=== PATIENT | male | born 1985 | race African-American/Black ===

== ENCOUNTER 2017-05-01 02:05 | Emergency (ER) | payer SELFPAY ==
[2017-05-01 02:17] VITALS: BP 145/97; PULSE 97; TEMP 97.4; BMI 32.5
--- NOTE | 2017-05-01 02:24 | PDOC ---
History of Present Illness - General Exam Limitations: No Limitations - History of Present Illness Initial Comments: 05/01/17 02:26 The patient is a 31 year old male, with no significant past medical history, who presents to the emergency department via EMS, s/p slip and fall. The patient reports he slipped, fell down stairs and hit his head. The patient reports loss of consciousness and states the fall was witnessed by a family member. He denies any dizziness, chest pain, palpitations, shortness of breath or nausea before falling. The patient reports a history of pulmonary embolism and states he is currently on Coumadin. The patient reports his last Tetanus shot was 2 weeks ago. He denies any recent fevers, chills, headache or dizziness. He denies any recent nausea, vomit, diarrhea or constipation. He denies any recent chest pain or shortness of breath. He denies any numbness, tingling or loss of sensation. Allergies: NKA <Pipo Torres - Last Filed: 05/01/17 03:57> - General History Source: Patient <Ralph Chang - Last Filed: 05/01/17 19:22> - General Chief Complaint: Injury Stated Complaint: FALL Time Seen by Provider: 05/01/17 02:17 Past History <Pipo Torres - Last Filed: 05/01/17 03:57> - Suicide/Smoking/Psychosocial Hx Smoking History: Never smoked Have you smoked in the past 12 months: No Number of Cigarettes Smoked Daily: 20 Information on smoking cessation initiated: No Hx Alcohol Use: No Drug/Substance Use Hx: No <Ralph Chang - Last Filed: 05/01/17 19:22> - Past Medical History Allergies/Adverse Reactions: Allergies Allergy/AdvReac Type Severity Reaction Status Date / Time No Known Allergies Allergy Verified 05/01/17 06:34 Home Medications: Ambulatory Orders Doxycycline Hyclate 100 mg PO BID #20 capsule 11/14/14 Oxycodone HCl/Acetaminophen [Percocet 5/325 -] 1 tab PO Q6H #12 tablet 11/14/14 Review of Systems - Review of Systems Comments:: 05/01/17 02:27 CONSTITUTIONAL: Absent: fever, no chills, no fatigue EYES: Absent: visual changes ENT: Absent: ear pain, no sore throat CARDIOVASCULAR: Absent: chest pain, no palpitations RESPIRATORY: Absent: cough, no SOB GI: Absent: abdominal pain, no nausea, no vomiting, no constipation, no diarrhea GENITOURINARY: Absent: dysuria, no frequency, no hematuria MUSKULOSKELETAL: Absent: back pain, no arthralgia, no myalgia SKIN: Absent: rash NEURO: Present: (+) LOC Absent: headache <Pipo Torres - Last Filed: 05/01/17 03:57> *Physical Exam - Vital Signs Last Vital Signs Temp Pulse Resp BP Pulse Ox 97.4 F L 97 H 20 145/97 97 05/01/17 02:14 05/01/17 02:14 05/01/17 02:14 05/01/17 02:14 05/01/17 02:14 - Physical Exam Comments: 05/01/17 02:28 GENERAL: Well-appearing, well-nourished. No apparent distress. HEENT: (+) Hematoma posterior of the head. (+) Laceration to the lower lip, left side. PERRL, EOM intact. CARDIOVASCULAR: Normal S1, S2. Regular rate and rhythm. PULMONARY: Clear to auscultation bilaterally. ABDOMEN: Soft, non-distended, non-tender. EXTREMITIES: Normal ROM in all four extremities. No gross deformities. SKIN: Warm, dry. No rash NEUROLOGICAL: No focal neurological deficits. <Pipo Torres - Last Filed: 05/01/17 03:57> - Vital Signs Last Vital Signs Temp Pulse Resp BP Pulse Ox 97.4 F L 97 H 20 145/97 97 05/01/17 02:14 05/01/17 02:14 05/01/17 02:14 05/01/17 02:14 05/01/17 02:14 <Ralph Chang - Last Filed: 05/01/17 19:22> ED Treatment Course - LABORATORY CBC & Chemistry Diagram: 05/01/17 02:30 - RADIOLOGY Radiograph Interpretation: 05/01/17 03:40 EXAM: CT HEAD WITHOUT CONTRAST No acute brain parenchymal abnormality. No hemorrhage, mass or acute territorial infarct. Chronic fracture left lamina papyracea. No skull fracture. Clear visualized paranasal sinuses. Visualized mastoid air cells clear. Reported by Marie Briseno M.D. 05/01/17 03:57 EXAM: CT CERVICAL SPINE WITHOUT CONTRAST No acute fracture or malalignment. Straightening of cervical lordosis, possibly due to positioning or muscle spasm. Small air bubbles around manubrium, possibly vacuum joint phenomenon. Reported Marie Briseno M.D. <Pipo Torres - Last Filed: 05/01/17 03:57> - LABORATORY CBC & Chemistry Diagram: 05/01/17 02:30 <Ralph Chang - Last Filed: 05/01/17 19:22> Medical Decision Making - Medical Decision Making 05/01/17 19:22 Dr. Chang: The scribe's documentation has been prepared under my direction and personally reviewed by me in its entirery. I confirm that the note above accurately reflects all work, treatment, procedures, and medical decision making performed by me. <Ralph Chang - Last Filed: 05/01/17 19:22> *DC/Admit/Observation/Transfer - Attestations Scribe Attestion: 05/01/17 02:29 Documentation prepared by Pipo Torres, acting as medical lab director for Ralph Chang MD. <Pipo Torres - Last Filed: 05/01/17 03:57> <Ralph Chang - Last Filed: 05/01/17 19:22> Diagnosis at time of Disposition: Laceration Closed head injury Qualifiers: Encounter type: initial encounter Qualified Code(s): S09.90XA - Unspecified injury of head, initial encounter - Patient Instructions Printed Discharge Instructions: DI for Laceration Repair -- Simple, DI for Closed Head Injury Additional Instructions: Keep wound clean and dry. Wash wound daily with soap and water. Return in 5-6 days for suture removal
[2017-05-01 02:40] LABS: HEMATOCRIT 46.1 % (35.4-49); HEMOGLOBIN 15.1 GM/dL (11.7-16.9); MCH 30.2 pg (25.7-33.7); MCHC 32.8 g/dl (32.0-35.9); MEAN PLT VOLUME 9.1 fl (7.5-11.1); PLATELET COUNT 152 K/MM3 (134-434); RBC 5.01 M/mm3 (4.00-5.60); RDW 14.1 % (11.9-15.9); WHITE BLOOD COUNT 2.6 K/mm3 (4.0-10.0)
[2017-05-01 02:51] LABS: INR 1.1 (0.82-1.09); PROTHROMBIN TIME (PATIENT) 12.4 SEC (9.98-11.88)
[2017-05-01 03:52] LABS: PLATELET ESTIMATE NORMAL
== END 2017-05-01 04:13 | disposition home or self-care (01) ==
LOC: JER 02:05
PROC: 0HQ0XZZ Repair Scalp Skin, External Approach (ICD-10-PCS; principal; 2017-05-01)
DX: S01.01XA Laceration without foreign body of scalp, initial encounter (principal); S09.90XA Unspecified injury of head, initial encounter; W10.9XXA Fall (on) (from) unspecified stairs and steps, initial encounter; Y93.89 Activity, other specified; Y92.89 Other specified places as the place of occurrence of the external cause
CPT/HCPCS: 36415; 70450-TC; 72125-TC; 85025; 85610; 99281-25

== ENCOUNTER 2017-05-01 06:30 | Emergency (ER) | payer SELFPAY ==
[2017-05-01 06:39] VITALS: TEMP 97.4; BMI 32.5
--- NOTE | 2017-05-01 07:17 | PDOC ---
History of Present Illness - General History Source: Patient, Old Records Exam Limitations: No Limitations - History of Present Illness Initial Comments: 05/01/17 08:04 The patient is a 31 year old male who returns to the ED status post fall. Early this morning, the patient was reportedly intoxicated and fell down the stairs. He was evaluated in the ED and discharged after unremarkable CT of head and neck. He returns now complaining of right hand and wrist pain. He states he didn 't really notice this pain earlier but it has become significantly worse since leaving the hospital. The patient reports he is currently taking 2 mg Coumadin daily for recently diagnosed pulmonary embolism. INR noted to be 1.1 during this morning's visit. <Alondra Garcia - Last Filed: 05/01/17 08:38> <Jagdish Mckeon - Last Filed: 05/01/17 11:39> - General Chief Complaint: Injury Stated Complaint: HAND INJURY Time Seen by Provider: 05/01/17 07:17 Past History <Alondra Garcia - Last Filed: 05/01/17 08:38> - Suicide/Smoking/Psychosocial Hx Smoking History: Never smoked Have you smoked in the past 12 months: No Number of Cigarettes Smoked Daily: 20 Information on smoking cessation initiated: No Hx Alcohol Use: No Drug/Substance Use Hx: No <Jagdish Mckeon - Last Filed: 05/01/17 11:39> - Past Medical History Allergies/Adverse Reactions: Allergies Allergy/AdvReac Type Severity Reaction Status Date / Time No Known Allergies Allergy Verified 05/01/17 06:34 Home Medications: Ambulatory Orders Doxycycline Hyclate 100 mg PO BID #20 capsule 11/14/14 Oxycodone HCl/Acetaminophen [Percocet 5/325 -] 1 tab PO Q6H #12 tablet 11/14/14 Review of Systems - Review of Systems Able to Perform ROS?: Yes Comments:: 05/01/17 08:11 CONSTITUTIONAL: No fever, no chills, no fatigue EYES: No visual changes ENT: No ear pain, no sore throat CARDIOVASCULAR: No chest pain, no palpitations RESPIRATORY: No cough, no SOB GI: No abdominal pain, no nausea, no vomiting, no constipation, no diarrhea GENITOURINARY: No dysuria, no frequency, no hematuria MUSCULOSKELETAL: No backpain, no joint pain, no myalgias SKIN: No rash NEURO: No headache <Jose AntonioAlondra solano - Last Filed: 05/01/17 08:38> *Physical Exam - Vital Signs Last Vital Signs Temp Pulse Resp BP Pulse Ox 97.4 F L 86 18 131/78 99 05/01/17 06:35 05/01/17 07:43 05/01/17 07:43 05/01/17 07:43 05/01/17 07:43 <RadhaAlondra - Last Filed: 05/01/17 08:38> - Vital Signs Last Vital Signs Temp Pulse Resp BP Pulse Ox 97.4 F L 93 H 20 139/92 98 05/01/17 06:35 05/01/17 06:35 05/01/17 06:35 05/01/17 06:35 05/01/17 06:35 - Physical Exam Comments: 05/01/17 11:31 EXAMINATION CONSTITUTIONAL: Awake and alert; well-nourished; in mild distress HEAD: Normocephalic; atraumatic EYES: PERRL; EOM intact; conj- injected ENMT: External appears normal; normal oropharynx, lower lip lac repaired primarily NECK: Supple; non-tender; no cervical lymphadenopathy CARD: Normal S1, S2; no murmurs, rubs, or gallops RESP: Normal chest excursion with respiration; breath sounds clear and equal bilaterally; no wheezes, rhonchi, or rales ABD: Soft, non-distended; non-tender; no palpable organomegaly, no palpable hernias EXT: RUE: no obvious deform; + severe ttp along the volar aspect of the distal forearm, wrist, and radio-carpal joints. no snuff box ttp; MCP/pip/dip flexion /ext intact; nv intact distally. SKIN: Warm, dry, no rash NEURO: cn ii-xii groslly intact, motor-5/5x4, gait-stable. <Jagdish Mckeon - Last Filed: 05/01/17 11:39> ED Treatment Course - Medications Given in the ED: ED Medications Discontinued Medications Generic Name Dose Route Start Last Admin Trade Name Freq PRN Reason Stop Dose Admin Ibuprofen 600 mg 05/01/17 07:28 05/01/17 07:36 Motrin - PO 05/01/17 07:29 600 mg ONCE ONE Administration <Alondra Garcia - Last Filed: 05/01/17 08:38> Medical Decision Making - Medical Decision Making 05/01/17 11:37 Forearm/wrist/hand x-rays reveal no evidence of fracture dislocation. Wrist splint and sling applied. Patient neurovascularly intact. Will discharge with orthopedic follow-up. [place] injury is suspected. <Jagdish Mckeon - Last Filed: 05/01/17 11:39> *DC/Admit/Observation/Transfer - Attestations Scribe Attestion: 05/01/17 08:39 Documentation prepared by Alondra Garcia, acting as medical billing specialist for Jagdish Mckeon MD. <Alondra Garcia - Last Filed: 05/01/17 08:38> - Attestations Physician Attestion: 05/01/17 11:31 The documentation was prepared by the scribe under my direct supervision. I have reviewed the documentation which correctly represents the findings, medical decision-making and critical action taken by me. <Jagdish Mckeon - Last Filed: 05/01/17 11:39> Diagnosis at time of Disposition: Arm injury Qualifiers: Encounter type: initial encounter Laterality: right Qualified Code(s): S49.91XA - Unspecified injury of right shoulder and upper arm, initial encounter - Discharge Dispostion Disposition: HOME Condition at time of disposition: Stable - Referrals Referrals: Nj Cole MD [Staff Physician] - - Patient Instructions Printed Discharge Instructions: How to Use a Sling, DI for Wrist Strain Additional Instructions: Please restart taking Coumadin as your INR is low in [place] risk for blood clots. Take extra strength Tylenol for her wrist injury. Apply ice. Follow-up with orthopedics.
[2017-05-01] MEDS ORDERED: IBUPROFEN 600 MG TABLET (FP) PO ONE ×2 (07:28→07:33)
[2017-05-01 07:46] VITALS: BP 131/78; PULSE 86
== END 2017-05-01 11:30 | disposition home or self-care (01) ==
LOC: JER 06:30
PROC: 2W3CX1Z Immobilization of Right Lower Arm using Splint (ICD-10-PCS; principal; 2017-05-01)
DX: S49.91XA Unspecified injury of right shoulder and upper arm, initial encounter (principal); W10.9XXA Fall (on) (from) unspecified stairs and steps, initial encounter; Y93.89 Activity, other specified; Y92.9 Unspecified place or not applicable; Z87.891 Personal history of nicotine dependence
CPT/HCPCS: 73090-TC-RT-FY; 73110-TC-RT-FY; 73130-TC-RT-FY; 99283-25

== ENCOUNTER 2017-05-10 14:29 | Emergency (ER) | payer OTHER ==
--- NOTE | 2017-05-10 15:02 | PDOC ---
Rapid Medical Evaluation Time Seen by Provider: 05/10/17 14:46 Medical Evaluation: Allergies Allergy/AdvReac Type Severity Reaction Status Date / Time No Known Allergies Allergy Verified 05/01/17 06:34 05/10/17 15:00 I have performed a brief in-person evaluation of this patient. The patient presents with a chief complaint of: suture removal to lower lip Pertinent physical exam findings: wound dehiscence to L lower lip w/ 1 suture intact to external lip I have ordered the following:nothing The patient will proceed to the ED for further evaluation.
[2017-05-10 15:06] VITALS: BP 139/92; PULSE 86; TEMP 98.2; BMI 31.2
--- NOTE | 2017-05-10 15:16 | PDOC ---
Suture Removal/Wound Check HPI - History of Present Illness Chief Complaint: Suture/Staple Removal(Here) Stated Complaint: Suture/Staple Removal (other) Time Seen by Provider: 05/10/17 14:46 History Source: Yes: Patient Treated at: [facility] Date of Last ED visit: 05/01/17 - Previous ED Treatment Type of procedure performed on last visit: Yes: Laceration Repair Past History - Past Medical History Allergies/Adverse Reactions: Allergies Allergy/AdvReac Type Severity Reaction Status Date / Time No Known Allergies Allergy Verified 05/10/17 15:01 Home Medications: Ambulatory Orders NK [No Known Home Medication] 05/10/17 COPD: No - Immunization History Immunization Up to Date: Yes - Suicide/Smoking/Psychosocial Hx Smoking History: Never smoked Have you smoked in the past 12 months: No Number of Cigarettes Smoked Daily: 20 Information on smoking cessation initiated: No Hx Alcohol Use: No Drug/Substance Use Hx: No Substance Use Type: None Suture Removal/Wound Check PE - Physical Exam Laceration/Wound Check Symptoms: reports: Pain. denies: Fever, Chills, Redness Location of Laceration/Wound: left: Lip (minimal wound dehiscence to L lower lip w/ 2 sutures intact, no discharge or erythema) *Review of Systems - Review of Systems Constitutional: No: Chills, Fever Integumentary: No: Erythema Medical Decision Making - Medical Decision Making 05/10/17 15:22 31 yo M, provoked DVT, on AC, seen in ED for lip lac 05/01 w/ lac repair, here for suture removal. States wound is still "sore" but no worsening pain, f/c. Pt well appearing w/ minimal wound dehiscence w/ no e/o infection. 2 sutures removed w/ dressing placed. Reasons to return d/w pt *DC/Admit/Observation/Transfer Diagnosis at time of Disposition: Visit for suture removal - Discharge Dispostion Disposition: HOME Condition at time of disposition: Good - Referrals - Patient Instructions Printed Discharge Instructions: DI for Suture Removal Additional Instructions: Your wound will continue to heal but may be sore for a few more day Avoid spicy, salty foods and drink through a straw in the meantime If wound becomes more painful, red or you develop fever, return immediately - Post Discharge Activity
== END 2017-05-10 15:22 | disposition home or self-care (01) ==
LOC: JERFT 14:29
DX: Z48.02 Encounter for removal of sutures (principal)
CPT/HCPCS: 99281-25